=== PATIENT | female | born 1990 | race Caucasian/White ===

== ENCOUNTER 2017-07-23 22:16 | Emergency (ER) | payer MEDICAID ==
[~2017-07-23] VITALS: Ht 177.8 cm; Wt 124.7 kg
[~2017-07-23 22:16] MED LIST: ANTIVERT25 MG PO; CEPHALEXIN 500500 M3 PO; IBUPROFEN 800800 M1 PO; NAPROSYN500 MG PO; PREDNISONE 10 M10 MG PO; ROBAXIN500 MG PO
[2017-07-23] MEDS ORDERED: NOHOMEMEDICATIONS (22:26)
[2017-07-23 22:35] LABS: ABSOLUTE BASOPHILS 0.1 thou/uL (0.0-0.2); ABSOLUTE EOSINOPHILS 0.1 thou/uL (0.0-0.7); ABSOLUTE LYMPHOCYTES 3.1 thou/uL (0.8-5.3); ABSOLUTE MONOCYTES 1.2 thou/uL (0.0-1.2); ABSOLUTE NEUTROPHILS 7.7 thou/uL (1.6-8.1); BASOPHILS 0.6 %; HEMATOCRIT 40.3 % (37.0-47.0); HEMOGLOBIN 13.3 gm/dL (12.0-15.0); LYMPHOCYTES 25.2 %; MCH 28.6 pg (26.0-34.0); MCV 86.8 fL (80.0-100.0); MONOCYTES 10.2 %; MPV 8.2 fl. (7.2-11.1); NUCLEATED RBCS 0 /100WBC; PLATELET COUNT* 276 thou/uL (150-400); RBC 4.64 mil/uL (4.20-5.00); RDW-CV 14.2 % (10.5-14.5); WBC 12.2 thou/uL (4.0-11.0)
[2017-07-23 22:52] LABS: APTT 26.7 Seconds (25.0-31.3); PROTIME 9.9 Seconds (9.20-11.50)
[2017-07-23 23:00] LABS: ANION GAP 5 mmol/L (7-16); BUN 11 mg/dL (7-18); CALCIUM 8.1 mg/dL (8.5-10.1); CHLORIDE 106 mmol/L (98-107); CO2 28 mmol/L (21-32); CREATININE 0.7 mg/dL (0.6-1.3); GLUCOSE 75 mg/dL (70-99); POTASSIUM 3.8 mmol/L (3.5-5.1); SODIUM 139 mmol/L (136-145)
[2017-07-23 23:08] LABS: ALBUMIN 2.9 g/dL (3.4-5.0); ALKALINE PHOSPHATASE 68 U/L (46-116); LIPASE 71 U/L (73-393); MAGNESIUM 1.7 mg/dL (1.8-2.4); NT-PRO BRAIN NAT PEPTIDE 80 pg/mL (<300); SGOT 17 U/L (15-37); SGPT 24 U/L (30-65); TOTAL BILIRUBIN 0.2 mg/dL (<0.1-1.0); TROPONIN-I LEVEL <0.06 ng/mL (<0.06)
[2017-07-23 23:30] VITALS: BP 119/83
--- NOTE | 2017-07-24 16:27 | EKG ---
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: BENJIE Jiménez : 1990 Requested By: Jose Davis Order Number: [id number] MD: Sohail Borrego Measurements Intervals Aroda Rate: 82 P: 55 NH: 119 QRS: 34 QRSD: 82 T: 20 QT: 364 QTc: 425 Interpretive Statements Sinus rhythm Borderline short NH interval Baseline wander in lead(s) II,aVR,aVF No previous ECG available for comparison Electronically Signed On 07-24-2017 16:27:04 CDT by Sohail Borrego [email or web address] <ELECTRONICALLY SIGNED> By: Sohail Borrego MD, [facility] 07/24/17 1627 20 20 Sohail Borrego MD, FACC /EPI
== END 2017-07-23 23:30 | disposition home or self-care (01) ==
LOC: M.ERS 22:16
PROVIDERS: Family Medicine
DX: R07.9 Chest pain, unspecified (principal)

== ENCOUNTER 2017-08-29 08:48 | Emergency (ER) | payer MEDICAID ==
[~2017-08-29] VITALS: Ht 175.3 cm; Wt 122.5 kg
[~2017-08-29 08:48] MED LIST changes: +NOHOMEMEDICATIONS
[2017-08-29] MEDS ORDERED: VENTOLIN HFA 1818 GM INH (10:00)
[2017-08-29 10:11] VITALS: BP 133/67
== END 2017-08-29 10:11 | disposition home or self-care (01) ==
LOC: M.ERS 08:48
DX: J40 Bronchitis, not specified as acute or chronic (principal); F17.200 Nicotine dependence, unspecified, uncomplicated

== ENCOUNTER 2018-01-01 14:56 | Emergency (ER) | payer OTHER, MEDICAID ==
[~2018-01-01] VITALS: Ht 177.8 cm; Wt 117.9 kg
[~2018-01-01 14:56] MED LIST changes: +VENTOLIN HFA 1818 GM INH
[2018-01-01 16:13] VITALS: BP 145/88
[2018-01-01] MEDS ORDERED: IBU800 MG PO (16:13)
[2018-01-01] MEDS ORDERED: FLEXERIL PO (16:13)
== END 2018-01-01 16:30 | disposition home or self-care (01) ==
LOC: M.ERS 14:56
DX: M54.9 Dorsalgia, unspecified (principal); M54.2 Cervicalgia; V89.2XXA Person injured in unspecified motor-vehicle accident, traffic, initial encounter; Y93.89 Activity, other specified; Y92.89 Other specified places as the place of occurrence of the external cause; Y99.8 Other external cause status

== ENCOUNTER 2018-07-01 19:38 | Emergency (ER) | payer OTHER, MEDICAID ==
[~2018-07-01] VITALS: Ht 177.8 cm; Wt 111.1 kg
[~2018-07-01 19:38] MED LIST changes: +FLEXERIL PO; +IBU800 MG PO
[2018-07-01 20:26] LABS: ABSOLUTE BASOPHILS 0.1 thou/uL (0.0-0.2); ABSOLUTE LYMPHOCYTES 2.1 thou/uL (0.8-5.3); ABSOLUTE MONOCYTES 0.8 thou/uL (0.0-1.2); ABSOLUTE NEUTROPHILS 6.7 thou/uL (1.6-8.1); BASOPHILS 0.6 %; EOSINOPHILS 0.5 %; HEMATOCRIT 37.9 % (37.0-47.0); HEMOGLOBIN 12.5 gm/dL (12.0-15.0); LYMPHOCYTES 21.8 %; MCH 28.4 pg (26.0-34.0); MCHC 33.1 g/dL (28.0-37.0); MONOCYTES 8.1 %; MPV 8.5 fl. (7.2-11.1); NUCLEATED RBCS 0 /100WBC; PLATELET COUNT* 326 thou/uL (150-400); RBC 4.41 mil/uL (4.20-5.00); RDW-CV 13.6 % (10.5-14.5); WBC 9.7 thou/uL (4.0-11.0)
[2018-07-01 20:41] LABS: ALBUMIN 3.5 g/dL (3.4-5.0); ALKALINE PHOSPHATASE 84 U/L (46-116); ANION GAP 10 mmol/L (7-16); BUN 6 mg/dL (7-18); CALCIUM 8.5 mg/dL (8.5-10.1); CHLORIDE 103 mmol/L (98-107); CO2 28 mmol/L (21-32); CREATININE 0.7 mg/dL (0.6-1.3); GLUCOSE 85 mg/dL (70-99); LIPASE 58 U/L (73-393); POTASSIUM 3.4 mmol/L (3.5-5.1); SGOT 10 U/L (15-37); SGPT 23 U/L (30-65); SODIUM 141 mmol/L (136-145); TOTAL BILIRUBIN 0.3 mg/dL (<0.1-1.0); TOTAL PROTEIN 7.8 g/dL (6.4-8.2); TROPONIN-I LEVEL <0.06 ng/mL (<0.06)
[2018-07-01 20:42] LABS: APTT 28.5 Seconds (25.0-31.3); INR 0.9; PROTIME 9.6 Seconds (9.20-11.50)
[2018-07-01] MEDS ORDERED: PREDNISONE50 MG PO (22:45)
[2018-07-01] MEDS ORDERED: NAPROSYN500 MG PO (22:45)
[2018-07-01 22:59] VITALS: BP 121/71
--- NOTE | 2018-07-02 11:08 | EKG ---
[place] [address] ELECTROCARDIOGRAM REPORT Name: CLAUDIO SHAIKH Room: [facility] Cristine#: [id number] Admission: 07/01/18 Attend Phys: Discharge: 07/01/18 Date of : [birth year] Report #: [id number] THIS REPORT FOR: //name// [facility] ED Test Date: 2018-07-01 Test Time: 19:44:51 Pat Name: CLAUDIO SHAIKH Department: Room: Gender: F Die Turner: : 1990 Requested By: Mone Fournier Order Number: [id number] MD: Evans De La Paz Measurements Intervals [place] Rate: 82 P: 64 NM: 119 QRS: 41 QRSD: 83 T: 19 QT: 368 QTc: 430 Interpretive Statements Sinus rhythm Borderline short NM interval Compared to ECG 07/23/2017 22:21:41 No significant changes Electronically Signed On 07-02-2018 11:07:53 CDT by Evans De La Paz [email or web address] <ELECTRONICALLY SIGNED> By: Evans De La Paz MD, [facility] 07/02/18 1107 [id number] Evans De La Paz MD, FACC /EPI
== END 2018-07-01 23:00 | disposition home or self-care (01) ==
LOC: M.ERS 19:38
PROVIDERS: Personal Emergency Response Attendant
DX: R09.1 Pleurisy (principal); Z88.0 Allergy status to penicillin